=== PATIENT | female | born 1950 | race Caucasian/White ===

== ENCOUNTER 2016-10-07 09:55 | Emergency (ER) | payer MEDICARE, OTHER ==
[~2016-10-07] VITALS: Ht 160 cm; Wt 71.0 kg
[~2016-10-07 09:55] MED LIST: HYD25 PO; LISI20TA11 PO; MEVA40 PO; OSLT75C PO; SERT50TA6 PO
[2016-10-07 10:02] VITALS: Ht 160 cm; Wt 71.0 kg
[2016-10-07] MEDS ORDERED: KETOROLAC 30 MG INJ IM STA (10:54)
[2016-10-07] MEDS ORDERED: predniSONE 20 MG TAB PO ONE (11:00)
[2016-10-07] MEDS ORDERED: PRED20TA PO (11:18)
[2016-10-07] MEDS ORDERED: ACET1TAB40 PO (11:18)
--- NOTE | 2016-10-07 11:23 | ERD ---
ER Documentation Chief Complaint Date/Time DATE: 10/07/16 TIME: 11:21 Chief Complaint COUGH,COLDS,HEADACHE X 4 DAYS HPI 65-year-old female presents with cough congestion for last 3 days. She is prescribed Zithromax, promethazine Ventolin by primary doctor. She presents for persistent complaints of nasal congestion and frontal discomfort. She has a dry cough. She has no history of fevers. She has vomiting, abdominal pain, chest pain, shortness of breath. ROS All systems reviewed and are negative except as per history of present illness. Medications Home Meds Active Scripts Acetaminophen with Codeine (Acetaminophen-Cod #3 Tablet) 1 Each Tablet, 1 TAB PO Q6H Y for PAIN, #7 TAB Prov:JERMAINE HILL MD 10/07/16 Prednisone* (Prednisone*) 20 Mg Tab, 40 MG PO DAILY for 3 Days, TAB Start 10/08/2016 Prov:JERMAINE HILL MD 10/07/16 Oseltamivir Phosphate* (Tamiflu*) 75 Mg Capsule, 75 MG PO BID for 5 Days, CAP Prov:CELI HERNANDEZ DO 08/07/15 Reported Medications Sertraline Hcl* (Sertraline Hcl*) 50 Mg Tablet, 50 MG PO DAILY, TAB 02/22/15 Lovastatin (Lovastatin) 40 Mg Tablet, 40 MG PO HS, TAB 02/22/15 Lisinopril* (Lisinopril*) 20 Mg Tablet, 20 MG PO DAILY, TAB 05/26/14 Hydrochlorothiazide* (Hydrochlorothiazide*) 25 Mg Tab, 25 MG PO DAILY, TAB 05/26/14 Allergies Allergies: Coded Allergies: No Known Allergy (Unverified , 10/07/16) PMhx/Soc Hx Cardiac Disorders: Yes (HTN, High Cholesterol) Hx Psychiatric Problems: Yes (Depression) Hx Alcohol Use: No Hx Substance Use: No Hx Tobacco Use: No Smoking Status: Never smoker Physical Exam Vitals Vital Signs Date Time Temp Pulse Resp B/P Pulse Ox O2 Delivery O2 Flow Rate FiO2 10/07/16 10:02 98.4 105 18 168/98 98 Physical Exam Const: [] Alert, not ill-appearing. Head: Atraumatic Eyes: Normal Conjunctiva ENT: Normal External Ears, Nose and Mouth. TMs are fractional. 3+ nasal congestion. Minimal frontal sinus tenderness. Neck: Full range of motion..~ No meningismus. Resp: Clear to auscultation bilaterally. No Rales wheezing or retractions appreciated. Cardio: Regular rate and rhythm, no murmurs Abd: Soft, non tender, non distended. Normal bowel sounds Skin: No petechiae or rashes Back: No midline or flank tenderness Ext: No cyanosis, or edema Neur: Awake and alert Psych: Normal Mood and Affect Results 24 hrs Current Medications Medications (Trade) Dose Ordered Sig/Mckayla Route PRN Reason Start Time Stop Time Status Last Admin Dose Admin Ketorolac Tromethamine (Toradol) 30 mg ONCE STAT IM 10/07/16 10:54 10/07/16 10:55 DC 10/07/16 11:03 Prednisone (Prednisone) 40 mg ONCE ONCE PO 10/07/16 11:00 10/07/16 11:01 DC 10/07/16 11:03 Procedures/MDM Patient since with URI symptoms and signs of likely sinusitis. She is advised to continue her current treatment. She was given prednisone 40 mg by mouth and Toradol 30 modems IM. She'll be treated with Tylenol 3 and a short course prednisone at home for minimal wheezing. Patient is advised to follow-up with primary care doctor this week or to the ER for new or worsening symptoms.The patient was stable with no new complaints during the ER course. Clinically, there is no current evidence to suggest meningitis, sepsis, acute abdomen, pneumonia, acute coronary syndrome, pulmonary embolism, or any other emergent condition appearing to require further evaluation or hospitalization. The patient should certainly return for any new or worsening symptoms per the aftercare instructions. They should otherwise follow-up with her primary care doctor for reevaluation this week. Departure Diagnosis: Primary Impression: Upper respiratory infection URI type: unspecified URI Qualified Code: J06.9 - Upper respiratory tract infection, unspecified type Condition: Stable Patient Instructions: Acute Sinusitis Additional Instructions: CONTINUA LAS MEDICINA QUE TIENE.Examines normal hoy. Cheque otro vez con mg doctor primario en el proximo mullins or regresa para mas o nueva simptomas. JERMAINE HILL MD Oct 07, 2016 11:22
== END 2016-10-07 11:27 | disposition home or self-care (01) ==
LOC: FTE 09:55
DX: J06.9 Acute upper respiratory infection, unspecified (principal); I10 Essential (primary) hypertension
CPT/HCPCS: 96372; 99284; J1885; J7512

== ENCOUNTER 2018-05-19 17:31 | Emergency (ER) | payer OTHER ==
[~2018-05-19] VITALS: Ht 157.5 cm; Wt 68.0 kg
[~2018-05-19 17:31] MED LIST changes: +ACET1TAB40 PO; -HYD25 PO; +HYDR25TA6 PO; +LISI-471 PO; -LISI20TA11 PO; +OSEL75CA23 PO; -OSLT75C PO; +PRED20TA PO
[2018-05-19 17:33] VITALS: BP 168/91; PULSE 86; RESP 18; Ht 157.5 cm; Wt 68.0 kg
[2018-05-19] MEDS ORDERED: KETOROLAC 15 MG INJ IM STA (20:22)
[2018-05-19] MEDS ORDERED: IBUP-1541 PO (21:45)
[2018-05-19] MEDS ORDERED: NITR-58 PO (21:45)
--- NOTE | 2018-05-19 21:46 | ERD ---
ER Documentation Chief Complaint Chief Complaint pt bib self with c/o cough, sore throat , aches and pain, fever x 2 days ROS All systems reviewed and are negative except as per history of present illness. Medications Home Meds Active Scripts Nitrofurantoin Monohyd Macrocr* (Macrobid*) 100 Mg Capsr, 100 MG PO BID for uti for 5 Days, #10 CAP Prov:DANY FINNEY DO 05/19/18 Ibuprofen* (Ibuprofen*) 400 Mg Tablet, 400 MG PO Q6H PRN for PAIN, #30 TAB Prov:DANY FINNEY DO 05/19/18 Acetaminophen with Codeine (Acetaminophen-Cod #3 Tablet) 1 Each Tablet, 1 TAB PO Q6H PRN for PAIN, #7 TAB Prov:JERMAINE HILL MD 10/07/16 Prednisone* (Prednisone*) 20 Mg Tab, 40 MG PO DAILY for 3 Days, TAB Start 10/08/2016 Prov:JERMAINE HILL MD 10/07/16 Oseltamivir Phosphate* (Tamiflu*) 75 Mg Capsule, 75 MG PO BID for 5 Days, CAP Prov:CELI HERNANDEZ DO 08/07/15 Reported Medications Sertraline Hcl* (Sertraline Hcl*) 50 Mg Tablet, 50 MG PO DAILY, TAB 02/22/15 Lovastatin (Lovastatin) 40 Mg Tablet, 40 MG PO HS, TAB 02/22/15 Lisinopril* (Lisinopril*) 20 Mg Tablet, 20 MG PO DAILY, TAB 05/26/14 Hydrochlorothiazide* (Hydrochlorothiazide*) 25 Mg Tab, 25 MG PO DAILY, TAB 05/26/14 Allergies Allergies: Coded Allergies: No Known Allergy (Unverified , 10/07/16) PMhx/Soc Hx Cardiac Disorders: Yes (HTN, High Cholesterol) Hx Psychiatric Problems: Yes (Depression) Hx Alcohol Use: No Hx Substance Use: No Hx Tobacco Use: No Smoking Status: Never smoker Physical Exam Vitals Vital Signs Date Temp Pulse Resp B/P (MAP) Pulse Ox O2 O2 Flow FiO2 Time Delivery Rate 05/19/18 98.3 86 18 168/91 97 17:33 (116) Physical Exam Const: No acute distress Head: Atraumatic Eyes: Normal Conjunctiva ENT: Normal External Ears, Nose and Mouth. Neck: Full range of motion. No meningismus. Resp: Clear to auscultation bilaterally Cardio: Regular rate and rhythm, no murmurs Abd: Soft, non tender, non distended. Normal bowel sounds Skin: No petechiae or rashes Back: No midline or flank tenderness Ext: No cyanosis, or edema Neur: Awake and alert Psych: Normal Mood and Affect Results 24 hrs Laboratory Tests Test 05/19/18 20:43 Bedside Urine pH (LAB) 7.0 Bedside Urine Protein (LAB) Trace Bedside Urine Glucose (UA) Negative Bedside Urine Ketones (LAB) Negative Bedside Urine Blood Trace-intact Bedside Urine Nitrite (LAB) Positive Bedside Urine Leukocyte Esterase (L 1+ Current Medications Medications Dose Sig/Mckayla Start Time Status Last (Trade) Ordered Route PRN Stop Time Admin Dose Reason Admin Ketorolac 15 mg ONCE STAT 05/19/18 DC 05/19/18 Tromethamine IM 20:22 20:42 (Toradol) 05/19/18 20:24 Departure Diagnosis: Primary Impression: UTI (urinary tract infection) Urinary tract infection type: acute cystitis Hematuria presence: without hematuria Qualified Codes: N30.00 - Acute cystitis without hematuria Condition: Fair Patient Instructions: Understanding Urinary Tract Infections (UTIs) Referrals: [facility] YOU HAVE RECEIVED A MEDICAL SCREENING EXAM AND THE RESULTS INDICATE THAT YOU DO NOT HAVE A CONDITION THAT REQUIRES URGENT TREATMENT IN THE EMERGENCY DEPARTMENT. FURTHER EVALUATION AND TREATMENT OF YOUR CONDITION CAN WAIT UNTIL YOU ARE SEEN IN YOUR DOCTORS OFFICE WITHIN THE NEXT 1-2 DAYS. IT IS YOUR RESPONSIBILITY TO MAKE AN APPOINTMENT FOR FOLOW-UP CARE. IF YOU HAVE A PRIMARY DOCTOR --you should call your primary doctor and schedule an appointment IF YOU DO NOT HAVE A PRIMARY DOCTOR YOU CAN CALL OUR PHYSICIAN REFERRAL HOTLINE AT IF YOU CAN NOT AFFORD TO SEE A PHYSICIAN YOU CAN CHOSE FROM THE FOLLOWING [facility] [address] [facility]. [facility] [address] [facility] [address] [facility]. [facility] [address] [facility]. [facility] [address] [facility]. [facility]. [address] Additional Instructions: Llame al doctor MAANA y basilio erika REN PARA DENTRO DE 1-2 [place].Dgale a la secre taria que nosotros le instruimos hacer esta ren.Avise o llame si mg condicin se empeora antes de la ren. Regresa aqui si peor o no mejor. DANY FINNEY DO May 19, 2018 21:46
== END 2018-05-19 21:54 | disposition home or self-care (01) ==
LOC: FTE 17:31
DX: N30.00 Acute cystitis without hematuria (principal); I10 Essential (primary) hypertension
CPT/HCPCS: 81003; 87880; 96372; 99284; J1885

== ENCOUNTER 2018-08-13 17:28 | Emergency (ER) | payer OTHER ==
[~2018-08-13] VITALS: Wt 89.0 kg
[~2018-08-13 17:28] MED LIST changes: +IBUP-1541 PO; +NITR-58 PO
[2018-08-13] MEDS ORDERED: SOD CHLORIDE 0.9% 500 ML IV STA (22:05)
[2018-08-13] MEDS ORDERED: ACETAMINOPHEN 500 MG TAB PO STA (22:05)
[2018-08-13] MEDS ORDERED: MECLIZINE 12.5 MG TAB PO ONE (22:30)
--- NOTE | 2018-08-13 23:59 | ERD ---
ER Documentation Chief Complaint Chief Complaint DIZZINESS, CP HPI During the patient's encounter translation services were utilized Language: Turkmen Source: In person Very pleasant 67-year-old female who presents the emergency room with 1 week of gradual body temporal headache. The patient states that over the last several days she has noted worsening dizziness. She describes it as a room spinning sensation when she gets up and moves her head from side to side. She states sudden onset and sudden resolution. She denies any nausea or vomiting. Headache is mild, gradual in onset. No jaw claudication, no vision changes. No fevers or chills rash or neck stiffness. No chest pressure or exertional symptoms. ROS All systems reviewed and are negative except as per history of present illness. Medications Home Meds Active Scripts Meclizine Hcl* (Meclizine Hcl*) 25 Mg Tablet, 25 MG PO Q8H PRN for DIZZINESS, #20 TAB Prov:CHACHO WBEB MD 08/14/18 Nitrofurantoin Monohyd Macrocr* (Macrobid*) 100 Mg Capsr, 100 MG PO BID for uti for 5 Days, #10 CAP Prov:DANY FINNEY DO 05/19/18 Ibuprofen* (Ibuprofen*) 400 Mg Tablet, 400 MG PO Q6H PRN for PAIN, #30 TAB Prov:DANY FINNEY DO 05/19/18 Acetaminophen with Codeine (Acetaminophen-Cod #3 Tablet) 1 Each Tablet, 1 TAB PO Q6H PRN for PAIN, #7 TAB Prov:JERMAINE HILL MD 10/07/16 Prednisone* (Prednisone*) 20 Mg Tab, 40 MG PO DAILY for 3 Days, TAB Start 10/08/2016 Prov:JERMAINE HILL MD 10/07/16 Oseltamivir Phosphate* (Tamiflu*) 75 Mg Capsule, 75 MG PO BID for 5 Days, CAP Prov:CELI HERNANDEZ DO 08/07/15 Reported Medications Sertraline Hcl* (Sertraline Hcl*) 50 Mg Tablet, 50 MG PO DAILY, TAB 02/22/15 Lovastatin (Lovastatin) 40 Mg Tablet, 40 MG PO HS, TAB 02/22/15 Lisinopril* (Lisinopril*) 20 Mg Tablet, 20 MG PO DAILY, TAB 05/26/14 Hydrochlorothiazide* (Hydrochlorothiazide*) 25 Mg Tab, 25 MG PO DAILY, TAB 05/26/14 Allergies Allergies: Coded Allergies: No Known Allergy (Unverified , 10/07/16) PMhx/Soc Hx Cardiac Disorders: Yes (HTN, High Cholesterol) Hx Psychiatric Problems: Yes (Depression) Hx Alcohol Use: No Hx Substance Use: No Hx Tobacco Use: No Smoking Status: Never smoker FmHx Family History: No diabetes Physical Exam Vitals Vital Signs Date Temp Pulse Resp B/P (MAP) Pulse Ox O2 O2 Flow FiO2 Time Delivery Rate 08/13/18 80 19 180/90 100 Room Air 22:24 (120) 08/13/18 98.1 90 18 183/103 99 17:36 (129) Physical Exam General: Well developed, well nourished, no acute distress Head: Normocephalic, atraumatic. Eyes: Pupils equally reactive, EOM intact ENT: Moist mucous membranes Neck: Supple, no lymphadenopathy Respiratory: Lungs clear bilaterally, no distress Cardiovascular: RRR, no murmurs, rubs, or gallops Abdominal: Soft, non-tender, non-distended, no peritoneal signs : Deferred MSK: No edema, no unilateral swelling, 5/5 strength Neurologic: Alert and oriented, moving all extremities, normal speech, no focal weakness, no cerebellar signs, slightly reproducible horizontal nystagmus worse to the left. No vertical nystagmus or rotary nystagmus. Steady gait without ataxia. Skin: No rash Psych: Normal mood Result Diagram: 08/13/18220808/13/182208 Results 24 hrs Laboratory Tests Test 08/13/18 22:09 White Blood Count 7.6 10^3/ul Red Blood Count 4.48 10^6/ul Hemoglobin 12.8 g/dl Hematocrit 39.1 % Mean Corpuscular Volume 87.3 fl Mean Corpuscular Hemoglobin 28.6 pg Mean Corpuscular Hemoglobin Concent 32.7 g/dl Red Cell Distribution Width 13.3 % Platelet Count 292 10^3/UL Mean Platelet Volume 9.5 fl Immature Granulocytes % 0.100 % Neutrophils % 53.9 % Lymphocytes % 36.9 % Monocytes % 6.9 % Eosinophils % 1.8 % Basophils % 0.4 % Nucleated Red Blood Cells % 0.0 /100WBC Immature Granulocytes # 0.010 10^3/ul Neutrophils # 4.1 10^3/ul Lymphocytes # 2.8 10^3/ul Monocytes # 0.5 10^3/ul Eosinophils # 0.1 10^3/ul Basophils # 0.0 10^3/ul Nucleated Red Blood Cells # 0.0 10^3/ul Sodium Level 141 mmol/L Potassium Level 3.8 mmol/L Chloride Level 104 mmol/L Carbon Dioxide Level 27 mmol/L Anion Gap 10 Blood Urea Nitrogen 10 mg/dl Creatinine 0.68 mg/dl Est Glomerular Filtrat Rate mL/min > 60 mL/min Glucose Level 117 mg/dl Calcium Level 9.7 mg/dl Troponin I < 0.012 ng/ml Current Medications Medications Dose Sig/Mckayla Start Time Status Last (Trade) Ordered Route PRN Stop Time Admin Dose Reason Admin Sodium 500 ml @ Q1H STAT 08/13/18 DC 08/13/18 Chloride 500 mls/hr IV 22:05 22:19 08/13/18 23:04 1,000 mg ONCE STAT 08/13/18 DC 08/13/18 Acetaminophen PO 22:05 22:19 (Tylenol 08/13/18 22:06 Tab) Meclizine 25 mg ONCE ONCE 08/13/18 DC 08/13/18 HCl PO 22:30 22:20 (Antivert) 08/13/18 22:31 Procedures/MDM EKG, MONITORS, & DIAGNOSTIC IMAGING: CT brain: PENDING LAB INTERPRETATION: I reviewed the laboratory testing and it shows no evidence of acute process MEDICAL DECISION MAKING: Signs and symptoms very consistent with peripheral vertigo. The patient has no signs of central vertigo or stroke. She has no other neurologic signs or symptoms. The patient's headache is unlikely related to serious etiology. The patient does not exhibit any clinical signs or symptoms, and has no risk factors to suggest headache etiology such as subarachnoid hemorrhage, acute vertebral or carotid dissection, intracranial mass, epidural, subdural hematoma, dural venous sinus thrombosis, giant cell arteritis, or pseudotumor cerebri. I do believe patient would benefit from CT of the brain given her age. Nonnarcotic pain medications for headache. Meclizine. ER COURSE: * Symptom control medication provided with improved symptomatology. * Patient's blood pressure was elevated (>120/80) but appears stable without evidence of hypertensive emergency or urgency. The patient was counseled about the risks of hypertension and urged to pursue outpatient monitoring and therapy within a week with their primary care physician. * CT pending if negative can be discharged * BP improved, sx improved. CONSULTATION: None DISPOSITION PLAN: Pending CT but anticipate discharge The patient does not have an identifiable emergent medical condition that warrants inpatient hospitalization at this time. The patient is deemed safe for discharge with outpatient follow-up. We discussed follow up with the patient's primary care doctor within 24 to 48 hours as needed. We also discussed return to the emergency room for worsening symptoms or worsening condition. Outpatient referral: None required Discharge Medications: Meclizine Departure Diagnosis: Primary Impression: Asymptomatic hypertension Additional Impression: Peripheral vertigo Laterality: unspecified laterality Qualified Codes: H81.399 - Other peripheral vertigo, unspecified ear Condition: Stable CHACHO WEBB MD August 13, 2018 23:59
[2018-08-14] MEDS ORDERED: MECL-77 PO (00:09)
[2018-08-14 00:35] VITALS: BP 150/80; PULSE 77; RESP 22
--- NOTE | 2018-08-16 14:49 | RADRPT ---
Vent Rate: 84 bpm RR Interval: 0 msec HI Interval: 154 msec QRS Duration: 76 msec QT Interval: 366 msec QTC Interval: 432 msec P-R-T [place]: 33 - 25 - 37 degrees Normal sinus rhythm Normal ECG Electronically Signed By: [facility]
== END 2018-08-14 00:36 | disposition home or self-care (01) ==
LOC: E/R 17:28
DX: I10 Essential (primary) hypertension (principal); H81.399 Other peripheral vertigo, unspecified ear; R40.2142 Coma scale, eyes open, spontaneous, at arrival to emergency department; R40.2362 Coma scale, best motor response, obeys commands, at arrival to emergency department; R40.2252 Coma scale, best verbal response, oriented, at arrival to emergency department
CPT/HCPCS: 36415; 70450; 80048; 84484; 85025; 93005; 99285; J7040

== ENCOUNTER 2018-08-24 02:37 | Emergency (ER) | payer OTHER ==
[~2018-08-24] VITALS: Wt 67.5 kg
[~2018-08-24 02:37] MED LIST changes: +MECL-77 PO
--- NOTE | 2018-08-24 03:26 | ERD ---
ER Documentation Chief Complaint Chief Complaint stress HPI The patient is a 67-year-old female, presenting to the ER because he has a lot of stress in her life. Her doctor recently added hydralazine 25 mg twice daily for 1 day in addition to losartan 50 mg p.o. daily. She is crying when I interviewed her. She denies headache, facial pain, neck pain, chest pain, dyspnea, abdominal pain, vomiting, dysuria, diarrhea. She does not smoke, de nies drinking Past medical history: Depression, dyslipidemia, hypertension Past surgical history: None ROS All systems reviewed and are negative except as per history of present illness. Medications Home Meds Active Scripts Meclizine Hcl* (Meclizine Hcl*) 25 Mg Tablet, 25 MG PO Q8H PRN for DIZZINESS, #20 TAB Prov:CHACHO WEBB MD 08/14/18 Nitrofurantoin Monohyd Macrocr* (Macrobid*) 100 Mg Capsr, 100 MG PO BID for uti for 5 Days, #10 CAP Prov:DANY FINNEY DO 05/19/18 Ibuprofen* (Ibuprofen*) 400 Mg Tablet, 400 MG PO Q6H PRN for PAIN, #30 TAB Prov:DANY FINNEY DO 05/19/18 Reported Medications Hydralazine Hcl* (Hydralazine Hcl*) 25 Mg Tab, 25 MG PO BID, #120 TAB 08/24/18 Metformin* (Glucophage*) 500 Mg Tab, 500 MG PO WITH BREAKFAST DINNE, #30 TAB 08/24/18 Losartan Potassium* (Losartan Potassium*) 50 Mg Tablet, 50 MG PO BID, TAB 08/24/18 Lovastatin (Lovastatin) 40 Mg Tablet, 40 MG PO HS, TAB 02/22/15 Discontinued Reported Medications Sertraline Hcl* (Sertraline Hcl*) 50 Mg Tablet, 50 MG PO DAILY, TAB 02/22/15 Lisinopril* (Lisinopril*) 20 Mg Tablet, 20 MG PO DAILY, TAB 05/26/14 Hydrochlorothiazide* (Hydrochlorothiazide*) 25 Mg Tab, 25 MG PO DAILY, TAB 05/26/14 Discontinued Scripts Acetaminophen with Codeine (Acetaminophen-Cod #3 Tablet) 1 Each Tablet, 1 TAB PO Q6H PRN for PAIN, #7 TAB Prov:JERMAINE HILL MD 10/07/16 Prednisone* (Prednisone*) 20 Mg Tab, 40 MG PO DAILY for 3 Days, TAB Start 10/08/2016 Prov:JERMAINE HILL MD 10/07/16 Oseltamivir Phosphate* (Tamiflu*) 75 Mg Capsule, 75 MG PO BID for 5 Days, CAP Prov:CELI HERNANDEZ DO 08/07/15 Allergies Allergies: Coded Allergies: No Known Allergy (Unverified , 08/24/18) PMhx/Soc Hx Cardiac Disorders: Yes (HTN, High Cholesterol) Hx Psychiatric Problems: Yes (Depression) Hx Alcohol Use: No Hx Substance Use: No Hx Tobacco Use: No Physical Exam Vitals Vital Signs Date Temp Pulse Resp B/P (MAP) Pulse Ox O2 O2 Flow FiO2 Time Delivery Rate 08/24/18 78 15 178/92 98 Room Air 03:52 (120) 08/24/18 98.3 107 20 224/111 99 02:45 (148) Physical Exam Const: No acute distress. Head: Atraumatic. Eyes: Normal Conjunctiva. ENT: Normal External Ears, Nose and Mouth. Neck: Full range of motion. No meningismus. Resp: Clear to auscultation bilaterally. Cardio: Regular rate and rhythm. Abd: Soft, non distended, normal bowel sounds, non tender. Skin: No petechiae or rashes. Back: No midline or flank tenderness. Ext: No cyanosis, or edema. Neur: Awake and alert. No focal deficit Psych: Anxious Procedures/MDM MEDICAL MAKING DECISION: The patient is a 67-year-old female, presenting to the ER because of acute accelerated hypertension, acute distress, acute anxiety. Her blood pressure improved well without intervention, is stable for outpatient follow-up The differential diagnoses considered include but are not limited to medical/di etary noncompliance, anxiety attack, panic attack, acute stress Departure Diagnosis: Primary Impression: Stress Additional Impressions: Anxiety HTN (hypertension) Condition: Good Comments I discussed the findings with the patient. I advised the patient to follow-up with the primary physician in about 1-2 days, sooner if needed and return if any concern. Disclaimer: Inadvertent spelling and grammatical errors are likely due to EHR/dictation software use and do not reflect on the overall quality of patient care. Also, please note that the electronic time recorded on this note does not necessarily reflect the actual time of the patient encounter. DANY DYSON MD August 24, 2018 03:26
[2018-08-24] MEDS ORDERED: LOSA50TA14 PO (04:59)
[2018-08-24] MEDS ORDERED: METF-849 PO (05:00)
[2018-08-24] MEDS ORDERED: HYDR-3671 PO (05:00)
[2018-08-24 05:12] VITALS: BP 173/90; PULSE 80; RESP 16
== END 2018-08-24 05:12 | disposition home or self-care (01) ==
LOC: E/R 02:37
DX: F43.9 Reaction to severe stress, unspecified (principal); I10 Essential (primary) hypertension; F41.9 Anxiety disorder, unspecified; Z79.84 Long term (current) use of oral hypoglycemic drugs
CPT/HCPCS: 99282